=== PATIENT | male | born 1990 | race Caucasian/White ===

== ENCOUNTER → 2019-06-08 | Outpatient (CLI) | payer BC, OTHER ==
--- NOTE | 2019-06-09 02:00 | REP ---
Clinical: Trauma. Technique: AP, lateral, bilateral oblique views right hand . Findings: The osseous structures and joint spaces are intact and normal. There is no evidence for acute fracture or dislocation. Surrounding soft tissues are unremarkable. No subcutaneous emphysema or radiodense foreign body. Impression: No acute fracture or dislocation. Electronically Signed by Cresencio Arceo MD 06/09/2019 01:51 A
== END ==
LOC: M WUC 13:54
PROVIDERS: ATTEND Physician Assistant
DX: M79.641 Pain in right hand (principal)

== ENCOUNTER → 2020-08-10 | Outpatient (REF) | payer BC | LOC: M WUC 12:10 | PROVIDERS: ATTEND Physician Assistant | DX: L02.213 Cutaneous abscess of chest wall (principal) ==